=== PATIENT | male | born 1980 | race Caucasian/White ===

== ENCOUNTER 2018-11-03 18:29 | Emergency (ER) | payer MEDICAID ==
[~2018-11-03] VITALS: Ht 172.7 cm; Wt 91.4 kg
[~2018-11-03 18:29] MED LIST: CYCL10TA7 PO; NAPR-985 PO
[2018-11-03 18:41] VITALS: Ht 172.7 cm; Wt 91.4 kg
[2018-11-03] MEDS ORDERED: KETOROLAC 30 MG INJ IM STA (18:54)
[2018-11-03 19:51] VITALS: BP 156/105; PULSE 59; RESP 20
--- NOTE | 2018-11-09 14:14 | ERD ---
ER Documentation Chief Complaint Chief Complaint Lower back pain X 1 wk, no trauma HPI 37-year-old male presents emergency department complaining of right-sided low back pain intermittently for the past 1 week. 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 Pain is worse when lifting. Current pain is 8/10 in severity. He took Advil with relief. Symptoms are now constant. Denies any fevers, chills, loss of bowel or bladder function, saddle anesthesia, lower extremity weakness or numbness, or other symptoms at this time. ROS All systems reviewed and are negative except as per history of present illness. Medications Home Meds Active Scripts Naproxen* (Naprosyn*) 500 Mg Tablet, 500 MG PO BID PRN for PAIN AND/OR INF LAMMATION, #30 TAB Prov:DEANGELO SALDIVAR PA-C 11/03/18 Cyclobenzaprine Hcl* (Cyclobenzaprine Hcl*) 10 Mg Tablet, 10 MG PO TID, #15 TAB Prov:DEANGELO SALDIVAR PA-C 11/03/18 Allergies Allergies: Coded Allergies: metoprolol (Verified Allergy, Severe, RASHES, 04/22/13) PMhx/Soc History of Surgery: No Anesthesia Reaction: No Hx Neurological Disorder: No Hx Respiratory Disorders: No Hx Cardiac Disorders: Yes (htn) Hx Psychiatric Problems: No Hx Miscellaneous Medical Probl: No Hx Alcohol Use: No Hx Substance Use: No Hx Tobacco Use: No Smoking Status: Never smoker FmHx Family History: No diabetes Physical Exam Physical Exam Const: No acute distress Head: Atraumatic Eyes: Normal Conjunctiva ENT: Normal External Ears, Nose and Mouth. Neck: Full range of motion. No meningismus. Resp: Clear to auscultation bilaterally Cardio: Regular rate and rhythm, no murmurs Abd: Soft, non tender, non distended. Normal bowel sounds Skin: No petechiae or rashes Back Exam: Skin: No bruising or rash Compartments: Soft Motor: Normal flexion and extension of bilateral hip/knee/ankle/foot Sensation: Intact to light touch throughout Bones: No midline TTP Ext: No cyanosis, or edema Neur: Awake and alert Psych: Normal Mood and Affect Results 24 hrs Current Medications Medications Dose Sig/Nhan Start Time Status Last (Trade) Ordered Route PRN Stop Time Admin Dose Reason Admin Ketorolac 30 mg ONCE STAT 11/03/18 DC 11/03/18 Tromethamine IM 18:54 19:05 (Toradol) 11/03/18 18:58 Procedures/MDM 37-year-old male presents emergency department complaining of back pain. History and physical exam was consistent with musculoskeletal low back pain. Patient was administered medication with improvement of his symptoms. Patient's musculoskeletal symptoms have stabilized while they have been evaluated in the department and are appropriate for outpatient work up. No evidence of cauda equina, cord compression, infiltrative, or infectious etiology. Patient's blood pressure was elevated (>120/80) but appears stable without evidence of hypertension emergency or urgency. The patient is to follow-up and pursue outpatient monitoring and therapy with their primary care physician within 1 week and return immediately if they have any new, worsening, or concerning symptoms. Departure Diagnosis: Primary Impression: Back pain Condition: Fair Patient Instructions: Back Pain (Acute Or Chronic) [facility] Usted se hudson hecho un examen mdico de control que le indica que no est en rebecca condicin que requiera tratamiento urgente en el Departamento de Emergencia. Un estudio ms profundo y el tratamiento de abbasi condicin pueden esperar sin ningn riesgo hasta que usted sea atendida/o en el consultorio de abbasi mdico o rebecca clnica. Es responsabilidad suya arreglar rebecca erasmo para el seguimiento del booker. MANEJO DE CONDICIONES NO URGENTES EN EL FUTURO 1) Si usted tiene un mdico de atencin primaria: Usted debera llamar a abbasi mdico de atencin primaria antes de venir al departamento de emergencia. Despus de las horas de consultorio, abbasi doctor o abbasi asociado/a est disponible por telfono. El mdico o enfermero de andrés en el servicio telefnico puede asesorarle por day medio para atender el problema, o booker contrario se puede programar rebecca erasmo. 2) Si usted no tiene un mdico de atencin primaria: Llame al mdico o clnica de referencia que aparece abajo dacia las horas de consultorio para hacer rebecca erasmo para que le vean. CLINICAS: [place] [id number] [phone] [facility] [phone] [place] [address] [phone] [place] [address] [phone] [place] [address] [phone] [place] [phone] Additional Instructions: Llame al doctor MAANA y humberto rebecca ERASMO PARA DENTRO DE 1-2 JOSEPH.Dgale a la secretaria que nosotros le instruimos hacer esta erasmo.Avise o llame si abbasi condicin se empeora antes de la erasmo. Regresa aqui si peor o no mejor. DEANGELO SALDIVAR PA-C Nov 09, 2018 14:14
== END 2018-11-03 19:53 | disposition home or self-care (01) ==
LOC: FTE 18:29
DX: M54.5 Low back pain (principal)
CPT/HCPCS: 96372; J1885; Z7502